=== PATIENT | female | born 1990 | race Hispanic/Latino ===

== ENCOUNTER 2023-01-07 22:29 | Emergency (ER) | payer SELFPAY ==
[~2023-01-07 22:29] MED LIST: LEXAPRO10 MG PO; LUNESTA1 MG PO; PHENTERMINE37.5 MG PO
[2023-01-07 23:00] VITALS: BP 122/68
[2023-01-07] MEDS ORDERED: FLOXIN OTIC0.3 % AD (23:20)
[2023-01-07] MEDS ORDERED: AMOX/K CLAV875 M1 PO (23:20)
[2023-01-07] MEDS ORDERED: ULTRAM50 MG PO (23:41)
[2023-01-08] MEDS ORDERED: AMOX/K CLAV875 M1 PO (00:01)
[2023-01-08] MEDS ORDERED: FLOXIN OTIC0.3 % AD (00:01)
[2023-01-08] MEDS ORDERED: ULTRAM50 MG PO (00:01)
== END 2023-01-08 00:04 | disposition home or self-care (01) | DRG 153 ==
LOC: ED 22:29
DX: H66.91 Otitis media, unspecified, right ear (principal); Z20.822 Contact with and (suspected) exposure to COVID-19